=== PATIENT | female | born 1940 | race Hispanic/Latino ===

== ENCOUNTER 2021-01-02 09:58 | Emergency (ER) | payer MEDICARE ==
[~2021-01-02] VITALS: Ht 160 cm; Wt 65.0 kg
[2021-01-02] MEDS ORDERED: TORADOL PO (11:54)
[2021-01-02 12:09] VITALS: BP 107/61
== END 2021-01-02 12:09 | disposition home or self-care (01) ==
LOC: EDBD 09:58 → ED 09:58
DX: S49.91XA Unspecified injury of right shoulder and upper arm, initial encounter (principal); M19.011 Primary osteoarthritis, right shoulder; J44.9 Chronic obstructive pulmonary disease, unspecified; X50.0XXA Overexertion from strenuous movement or load, initial encounter; Z95.0 Presence of cardiac pacemaker

== ENCOUNTER 2022-07-24 21:12 | Observation (INO) | payer MEDICARE ==
[~2022-07-24] VITALS: Ht 160 cm; Wt 65.9 kg
[~2022-07-24 21:12] MED LIST: TORADOL PO
--- NOTE | 2022-07-24 21:12 | NUR ---
PATIENT TO ROOM VIA STRETCHER ACCOMPANIED BY FLIGHT CREW.
[2022-07-24 22:04] LABS: URINE BILIRUBIN - DIPSTICK NEGATIVE (NEGATIVE); URINE BLOOD DIPSTICK NEGATIVE (NEGATIVE); URINE COLOR YELLOW; URINE GLUCOSE - DIPSTICK NEGATIVE (NEGATIVE); URINE KETONE NEGATIVE (NEGATIVE); URINE PH 8.5 (4.5-8.0); URINE PROTEIN - DIPSTICK NEGATIVE (NEG-TRACE)
[2022-07-24 22:04] LABS: HEMATOCRIT 39.6 % (37.0-47.0); HEMOGLOBIN 12.6 g/dl (12.0-16.0); IMMATURE GRANULOCYTES 0.2 % (0.0-5.0); MEAN CELL VOLUME 99.5 fL CALC (80.0-100.0); MEAN CORPUSCULAR HGB 31.7 pG CALC (26.0-32.0); MEAN CORPUSCULAR HGB CONC 31.8 g/dL CAL (32.0-36.0); NEUT# 2.83 thou/uL (2.00-7.15); RED BLOOD COUNT 3.98 mill/uL (4.20-5.60); RED CELL DISTRI WIDTH 14.7 % (11.5-15.5)
[2022-07-24] MEDS ORDERED: CITALOPRAM20 M1 (22:04)
[2022-07-24] MEDS ORDERED: SPIRIVA IN (22:04)
[2022-07-24] MEDS ORDERED: COREG3.125 MG PO (22:05)
[2022-07-24 22:06] LABS: URINE LEUK ESTERASE SMALL (NEGATIVE); URINE NITRITE - DIPSTICK POSITIVE (Negative)
[2022-07-24] MEDS ORDERED: POTASSIUM99 MG PO (22:06)
[2022-07-24] MEDS ORDERED: ELIQUIS5 MG PO (22:06)
[2022-07-24] MEDS ORDERED: ASPIRIN325 MG PO (22:07)
[2022-07-24] MEDS ORDERED: LEVOTHYROXIN50 MCG PO (22:07)
[2022-07-24] MEDS ORDERED: LIPITOR20 MG PO (22:07)
--- NOTE | 2022-07-24 22:08 | NUR ---
DAUGHTER CALLED [place] TO GIVE LIST OF HOME MEDS. [phone]
--- NOTE | 2022-07-24 22:14 | NUR ---
NO COUGH NO WHEEZE NO SOB.W/P/D SKIN PINK MOIST ORAL MUCOSA
[2022-07-24 22:29] LABS: ALBUMIN 3.5 g/dL (3.2-5.0); ALKALINE PHOSPHATASE 141 u/l (38-126); BILIRUBIN, TOTAL 0.8 mg/dL (0.0-1.4); BUN 15 mg/dL (8-23); BUN/CREATININE RATIO 17 (12-20 (CALC)); CHLORIDE 93 mmol/l (95-108); CREATININE 0.9 mg/dL (0.5-1.0); GFR FOR AFR.AMER. > 60 ML/MIN (>=60 (CALC)); GFR OTHER RACES 60 ML/MIN (>=60 (CALC)); POTASSIUM 4.3 mmol/l (3.5-5.1); SGOT/AST 72 u/l (9-36); SODIUM 136 mmol/l (137-146); TOTAL PROTEIN 7.5 g/dL (6.3-8.2)
[2022-07-24 22:29] LABS: URINE BACTERIA MANY hpf; URINE SQUAMOUS EPITHELIAL CELL MANY EPI/hpf (0-FEW)
[2022-07-24 22:30] LABS: URINE TRIP PHOS CRYSTALS FEW lpf
[2022-07-24 22:35] LABS: ANION GAP 6 (6-22 (CALC))
[2022-07-24 22:42] LABS: CARBON DIOXIDE 41 mmol/l (22-30)
[2022-07-25] VITALS (7 sets, daily range): BP systolic 91–129; BP diastolic 45–70
--- NOTE | 2022-07-25 00:35 | NUR ---
FOUND IV LAC DISPLACED RESTARTED SLINE LOCK RAC 20 GAUGE
--- NOTE | 2022-07-25 01:19 | NUR ---
PT REPORT TO NURSE NURSE DAVID ON MS
--- NOTE | 2022-07-25 01:24 | NUR ---
PT TRANSPORTED TO CT VIA STRETCHER ON O2 AND TELE IN STABLE CONDITION
--- NOTE | 2022-07-25 02:35 | NUR ---
PATIENT ARRIVED TO THE FLOOR VIA ED. PATIENT IS ALERT AND ORIENTED. PATIIENT C/O BEING COLD. PATIENT HAS HX OF COPD IV ABX GIVEN IN ED
--- NOTE | 2022-07-25 07:38 | NUR ---
PT RESTING IN LOW FOWLERS POSITION. ASSESSMENT ANS VS COMPLETE. HEART RHYTHM ON TELE .RESPIRAITONSUNLABORED ON 2L NC BOWEL SOUNDS ACTIVE. IV SITE TO RAC S.L NOTED. ALL SAFETY PRECAUTIONS IN PLACE WITH CALL LIGHT INREACH.
--- NOTE | 2022-07-25 11:58 | NUR ---
PT COVID SWAB COLLECTED.
--- NOTE | 2022-07-25 15:57 | NUR ---
PT RESTING IN HIGH FOWLERS POSITIION DENIES ADDITIONAL NEEDS AT THE TIME.
[2022-07-25] MEDS ORDERED: DOXEPIN HCL10 MG PO (18:37)
[2022-07-25] MEDS ORDERED: PROAIR HFA IN (18:42)
--- NOTE | 2022-07-25 21:56 | NUR ---
NILTON RN DID NOT IMMEDIATELY HAVE [employer] ACCESS. SLOT FLOOR PERSON APPROVED MEDICATION ADMINISTRATION AND SIGNED OFF ON ADMINISTRATION.
[2022-07-26 00:21] VITALS: BP 95/54
[2022-07-26 04:12] VITALS: BP 103/54
[2022-07-26 05:04] LABS: ANION GAP 10 (6-22 (CALC)); BUN 17 mg/dL (8-23); BUN/CREATININE RATIO 20 (12-20 (CALC)); CARBON DIOXIDE 36 mmol/l (22-30); CHLORIDE 93 mmol/l (95-108); CREATININE 0.8 mg/dL (0.5-1.0); GFR FOR AFR.AMER. > 60 ML/MIN (>=60 (CALC)); GFR OTHER RACES > 60 ML/MIN (>=60 (CALC)); MAGNESIUM 1.9 mg/dL (1.6-2.3); POTASSIUM 4.4 mmol/l (3.5-5.1); SODIUM 135 mmol/l (137-146)
[2022-07-26 06:18] VITALS: BP 106/50
[2022-07-26 10:34] VITALS: BP 103/59
--- NOTE | 2022-07-26 10:52 | NUR ---
PRELIMINARY BLOOD CULTURE RESULTS CALLED TO DR MURPHY. NO NEW ORDERS AT THIS TIME.
[2022-07-26 15:40] VITALS: BP 98/55
[2022-07-26 19:12] VITALS: BP 109/60
[2022-07-27 00:09] VITALS: BP 96/51
[2022-07-27 03:57] VITALS: BP 104/54
[2022-07-27 06:38] VITALS: BP 96/51
[2022-07-27 11:42] VITALS: BP 109/65
[2022-07-27] MEDS ORDERED: KEFLEX500 MG PO (13:30)
[2022-07-27] MEDS ORDERED: MEDDOSEPAK PO (13:30)
== END 2022-07-27 17:56 | disposition home health service (06) ==
LOC: ED 21:12 → ED-I 23:00 → ED 23:51 → MS2 23:51
PROVIDERS: Internal Medicine; Nurse Practitioner; ADMIT Internal Medicine; ATTEND Internal Medicine
DX: J44.1 Chronic obstructive pulmonary disease with (acute) exacerbation (principal); N39.0 Urinary tract infection, site not specified; J96.21 Acute and chronic respiratory failure with hypoxia; R53.1 Weakness; I48.91 Unspecified atrial fibrillation; E03.9 Hypothyroidism, unspecified; F32.A Depression, unspecified; Z95.0 Presence of cardiac pacemaker; B96.4 Proteus (mirabilis) (morganii) as the cause of diseases classified elsewhere; Z99.81 Dependence on supplemental oxygen; Z79.01 Long term (current) use of anticoagulants; Z59.1 Inadequate housing; Z20.822 Contact with and (suspected) exposure to COVID-19

== ENCOUNTER 2022-10-09 17:59 | Emergency (ER) | payer MEDICARE ==
[2022-10-09] VITALS (12 sets, daily range): BP systolic 120–157; BP diastolic 69–90
[~2022-10-09] VITALS: Ht 160 cm; Wt 58.9 kg
[~2022-10-09 17:59] MED LIST changes: +ASPIRIN325 MG PO; +CITALOPRAM20 M1; +COREG3.125 MG PO; +DOXEPIN HCL10 MG PO; +ELIQUIS5 MG PO; +KEFLEX500 MG PO; +LEVOTHYROXIN50 MCG PO; +LIPITOR20 MG PO; +MEDDOSEPAK PO; +POTASSIUM99 MG PO; +PROAIR HFA IN; +SPIRIVA IN
[2022-10-09 19:41] LABS: HEMATOCRIT 35.6 % (37.0-47.0); HEMOGLOBIN 11.5 g/dl (12.0-16.0); MEAN CELL VOLUME 102.9 fL CALC (80.0-100.0); MEAN CORPUSCULAR HGB 33.2 pG CALC (26.0-32.0); MEAN CORPUSCULAR HGB CONC 32.3 g/dL CAL (32.0-36.0); NEUT# 1.8 thou/uL (2.00-7.15); RED BLOOD COUNT 3.46 mill/uL (4.20-5.60); RED CELL DISTRI WIDTH 14.5 % (11.5-15.5)
[2022-10-09 20:05] LABS: ALBUMIN 3.6 g/dL (3.2-5.0); ALKALINE PHOSPHATASE 195 u/l (38-126); BILIRUBIN, TOTAL 0.6 mg/dL (0.0-1.4); BUN 15 mg/dL (8-23); BUN/CREATININE RATIO 17 (12-20 (CALC)); CHLORIDE 95 mmol/l (95-108); CREATININE 0.9 mg/dL (0.5-1.0); GFR FOR AFR.AMER. > 60 ML/MIN (>=60 (CALC)); GFR OTHER RACES 60 ML/MIN (>=60 (CALC)); POTASSIUM 4.3 mmol/l (3.5-5.1); SGOT/AST 107 u/l (9-36); SODIUM 140 mmol/l (137-146); TOTAL PROTEIN 7.1 g/dL (6.3-8.2)
[2022-10-09 20:11] LABS: ANION GAP 7 (6-22 (CALC))
[2022-10-09 20:13] LABS: CARBON DIOXIDE 42 mmol/l (22-30)
[2022-10-09 20:17] LABS: URINE BILIRUBIN - DIPSTICK NEGATIVE (NEGATIVE); URINE BLOOD DIPSTICK NEGATIVE (NEGATIVE); URINE COLOR YELLOW; URINE GLUCOSE - DIPSTICK NEGATIVE (NEGATIVE); URINE KETONE NEGATIVE (NEGATIVE); URINE PH 7.5 (4.5-8.0); URINE PROTEIN - DIPSTICK NEGATIVE (NEG-TRACE)
[2022-10-09 20:19] LABS: URINE LEUK ESTERASE SMALL (NEGATIVE); URINE NITRITE - DIPSTICK NEGATIVE (Negative)
[2022-10-09 20:23] LABS: URINE SQUAMOUS EPITHELIAL CELL FEW EPI/hpf (0-FEW); URINE TRANSITIONAL EPI. CELLS RARE hpf
[2022-10-09] MEDS ORDERED: VIBRAMYCIN100 M2 PO (20:41)
[2022-10-09] MEDS ORDERED: ALBUTEROL SUL0.083 % IN (20:41)
[2022-10-09] MEDS ORDERED: PREDNISONE50 MG PO (20:41)
[2022-10-09] MEDS ORDERED: NEBULIZER KIT/TUBING IN (20:41)
== END 2022-10-09 21:40 | disposition home or self-care (01) ==
LOC: ED 17:59
PROVIDERS: Family Medicine
DX: J44.1 Chronic obstructive pulmonary disease with (acute) exacerbation (principal); Z95.0 Presence of cardiac pacemaker

== ENCOUNTER 2022-11-12 19:37 | Observation (INO) | payer MEDICARE ==
[2022-11-12] VITALS (13 sets, daily range): BP systolic 108–145; BP diastolic 53–76
[~2022-11-12] VITALS: Ht 160 cm; Wt 67.2 kg
[~2022-11-12 19:37] MED LIST changes: +ALBUTEROL SUL0.083 % IN; +NEBULIZER KIT/TUBING IN; +PREDNISONE50 MG PO; +VIBRAMYCIN100 M2 PO
[2022-11-12 20:33] LABS: BASO% 0.8 % (0-3); EOS% 3.8 % (0-8); HEMATOCRIT 34.6 % (37.0-47.0); HEMOGLOBIN 11.2 g/dl (12.0-16.0); IMMATURE GRANULOCYTES 0.3 % (0.0-5.0); LYMPH% 31.5 % (15-41); MEAN CELL VOLUME 100.9 fL CALC (80.0-100.0); MEAN CORPUSCULAR HGB 32.7 pG CALC (26.0-32.0); MEAN CORPUSCULAR HGB CONC 32.4 g/dL CAL (32.0-36.0); MONO% 6.2 % (2-13); NEUT# 2.13 thou/uL (2.00-7.15); NEUT% 57.4 % (42-76); RED BLOOD COUNT 3.43 mill/uL (4.20-5.60); RED CELL DISTRI WIDTH 14.2 % (11.5-15.5)
[2022-11-12 20:46] LABS: ALKALINE PHOSPHATASE 138 u/l (38-126); AMYLASE 184 u/l (30-110); BUN 19 mg/dL (8-23); BUN/CREATININE RATIO 19 (12-20 (CALC)); CHLORIDE 94 mmol/l (95-108); GFR FOR AFR.AMER. > 60 ML/MIN (>=60 (CALC)); GFR OTHER RACES 53 ML/MIN (>=60 (CALC)); LIPASE 308 u/l (23-300); POTASSIUM 4.6 mmol/l (3.5-5.1); SGOT/AST 134 u/l (9-36); SODIUM 138 mmol/l (137-146); TOTAL PROTEIN 7.4 g/dL (6.3-8.2)
[2022-11-12 20:56] LABS: ANION GAP 2 (6-22 (CALC)); BILIRUBIN, TOTAL 1.4 mg/dL (0.0-1.4); CARBON DIOXIDE 47 mmol/l (22-30)
[2022-11-12 22:45] LABS: URINE BILIRUBIN - DIPSTICK NEGATIVE (NEGATIVE); URINE BLOOD DIPSTICK NEGATIVE (NEGATIVE); URINE COLOR YELLOW; URINE GLUCOSE - DIPSTICK NEGATIVE (NEGATIVE); URINE KETONE NEGATIVE (NEGATIVE); URINE PH 7.5 (4.5-8.0); URINE PROTEIN - DIPSTICK NEGATIVE (NEG-TRACE)
[2022-11-12 22:47] LABS: URINE LEUK ESTERASE SMALL (NEGATIVE); URINE NITRITE - DIPSTICK NEGATIVE (Negative)
[2022-11-12 22:58] LABS: URINE RBC 0-2 RBC/hpf (0-5); URINE SQUAMOUS EPITHELIAL CELL FEW EPI/hpf (0-FEW)
[2022-11-13] VITALS (14 sets, daily range): BP systolic 98–131; BP diastolic 42–90
[2022-11-13 04:47] LABS: BASO% 0.7 % (0-3); EOS% 3.3 % (0-8); HEMATOCRIT 32.5 % (37.0-47.0); HEMOGLOBIN 10.4 g/dl (12.0-16.0); LYMPH% 35.3 % (15-41); MEAN CELL VOLUME 101.6 fL CALC (80.0-100.0); MEAN CORPUSCULAR HGB 32.5 pG CALC (26.0-32.0); MONO% 7.5 % (2-13); NEUT# 1.63 thou/uL (2.00-7.15); NEUT% 53.2 % (42-76); RED BLOOD COUNT 3.2 mill/uL (4.20-5.60); RED CELL DISTRI WIDTH 14.2 % (11.5-15.5)
[2022-11-13 05:01] LABS: ALKALINE PHOSPHATASE 118 u/l (38-126); BUN 16 mg/dL (8-23); BUN/CREATININE RATIO 17 (12-20 (CALC)); CHLORIDE 96 mmol/l (95-108); GFR FOR AFR.AMER. > 60 ML/MIN (>=60 (CALC)); GFR OTHER RACES 53 ML/MIN (>=60 (CALC)); SGOT/AST 99 u/l (9-36); SODIUM 138 mmol/l (137-146); TOTAL PROTEIN 6.1 g/dL (6.3-8.2)
[2022-11-13 05:11] LABS: POTASSIUM 3.6 mmol/l (3.5-5.1)
[2022-11-13 05:12] LABS: ALBUMIN 3.1 g/dL (3.2-5.0); ANION GAP 3 (6-22 (CALC)); BILIRUBIN, TOTAL 0.8 mg/dL (0.0-1.4)
[2022-11-13 05:13] LABS: CARBON DIOXIDE 43 mmol/l (22-30)
[2022-11-14] VITALS (37 sets, daily range): BP systolic 87–131; BP diastolic 38–84
[2022-11-14 06:02] LABS: BASO% 0.6 % (0-3); EOS% 4.2 % (0-8); HEMATOCRIT 30.6 % (37.0-47.0); HEMOGLOBIN 9.8 g/dl (12.0-16.0); LYMPH% 29.7 % (15-41); MEAN CELL VOLUME 102.7 fL CALC (80.0-100.0); MEAN CORPUSCULAR HGB 32.9 pG CALC (26.0-32.0); MONO% 6.8 % (2-13); NEUT# 1.82 thou/uL (2.00-7.15); NEUT% 58.7 % (42-76); RED BLOOD COUNT 2.98 mill/uL (4.20-5.60); RED CELL DISTRI WIDTH 14.1 % (11.5-15.5)
[2022-11-14 06:14] LABS: ALBUMIN 2.9 g/dL (3.2-5.0); ALKALINE PHOSPHATASE 107 u/l (38-126); BILIRUBIN, TOTAL 0.5 mg/dL (0.0-1.4); CHLORIDE 98 mmol/l (95-108); POTASSIUM 3.9 mmol/l (3.5-5.1); SGOT/AST 98 u/l (9-36); SODIUM 138 mmol/l (137-146); TOTAL PROTEIN 5.7 g/dL (6.3-8.2)
[2022-11-14 06:19] LABS: BUN 14 mg/dL (8-23); BUN/CREATININE RATIO 14 (12-20 (CALC)); GFR FOR AFR.AMER. > 60 ML/MIN (>=60 (CALC)); GFR OTHER RACES 53 ML/MIN (>=60 (CALC))
[2022-11-14 06:21] LABS: ANION GAP 0 (6-22 (CALC))
[2022-11-14 06:32] LABS: CARBON DIOXIDE 44 mmol/l (22-30)
[2022-11-15] VITALS (89 sets, daily range): BP systolic 77–150; BP diastolic 35–105
[2022-11-15 05:58] LABS: BASO% 0.4 % (0-3); EOS% 2.7 % (0-8); HEMATOCRIT 31.6 % (37.0-47.0); HEMOGLOBIN 10.3 g/dl (12.0-16.0); IMMATURE GRANULOCYTES 0.2 % (0.0-5.0); MEAN CORPUSCULAR HGB 32.9 pG CALC (26.0-32.0); MEAN CORPUSCULAR HGB CONC 32.6 g/dL CAL (32.0-36.0); MONO% 7.8 % (2-13); NEUT# 3.81 thou/uL (2.00-7.15); NEUT% 67.9 % (42-76); RED BLOOD COUNT 3.13 mill/uL (4.20-5.60); RED CELL DISTRI WIDTH 14.2 % (11.5-15.5)
[2022-11-15 06:29] LABS: ALBUMIN 2.9 g/dL (3.2-5.0); ALKALINE PHOSPHATASE 123 u/l (38-126); BUN 13 mg/dL (8-23); BUN/CREATININE RATIO 15 (12-20 (CALC)); CHLORIDE 99 mmol/l (95-108); CREATININE 0.9 mg/dL (0.5-1.0); GFR FOR AFR.AMER. > 60 ML/MIN (>=60 (CALC)); GFR OTHER RACES 60 ML/MIN (>=60 (CALC)); POTASSIUM 3.9 mmol/l (3.5-5.1); SGOT/AST 99 u/l (9-36); SODIUM 139 mmol/l (137-146); TOTAL PROTEIN 5.6 g/dL (6.3-8.2)
[2022-11-15 06:42] LABS: ANION GAP 0 (6-22 (CALC)); CARBON DIOXIDE 44 mmol/l (22-30)
[2022-11-16] VITALS (9 sets, daily range): BP systolic 104–130; BP diastolic 53–65
[2022-11-16 05:43] LABS: HEMATOCRIT 31.3 % (37.0-47.0); HEMOGLOBIN 10.5 g/dl (12.0-16.0); MEAN CORPUSCULAR HGB 33.9 pG CALC (26.0-32.0); MEAN CORPUSCULAR HGB CONC 33.5 g/dL CAL (32.0-36.0); RED BLOOD COUNT 3.1 mill/uL (4.20-5.60)
[2022-11-16 05:51] LABS: ALBUMIN 2.8 g/dL (3.2-5.0); ALKALINE PHOSPHATASE 112 u/l (38-126); BUN 13 mg/dL (8-23); BUN/CREATININE RATIO 15 (12-20 (CALC)); CHLORIDE 97 mmol/l (95-108); CREATININE 0.9 mg/dL (0.5-1.0); GFR FOR AFR.AMER. > 60 ML/MIN (>=60 (CALC)); GFR OTHER RACES 60 ML/MIN (>=60 (CALC)); MAGNESIUM 1.9 mg/dL (1.6-2.3); POTASSIUM 3.9 mmol/l (3.5-5.1); SGOT/AST 106 u/l (9-36); SODIUM 137 mmol/l (137-146); TOTAL PROTEIN 5.7 g/dL (6.3-8.2)
[2022-11-16 05:59] LABS: ANION GAP 0 (6-22 (CALC))
[2022-11-16 06:13] LABS: CARBON DIOXIDE 44 mmol/l (22-30)
[2022-11-17 00:38] VITALS: BP 103/58
[2022-11-17 04:14] VITALS: BP 126/57
[2022-11-17 06:25] LABS: BASO% 0.4 % (0-3); EOS% 2.4 % (0-8); HEMATOCRIT 33.7 % (37.0-47.0); LYMPH% 25.5 % (15-41); MEAN CELL VOLUME 100.9 fL CALC (80.0-100.0); MEAN CORPUSCULAR HGB 32.9 pG CALC (26.0-32.0); MEAN CORPUSCULAR HGB CONC 32.6 g/dL CAL (32.0-36.0); MONO% 7.6 % (2-13); NEUT# 3.54 thou/uL (2.00-7.15); NEUT% 64.1 % (42-76); RED BLOOD COUNT 3.34 mill/uL (4.20-5.60); RED CELL DISTRI WIDTH 14.1 % (11.5-15.5)
[2022-11-17 06:32] LABS: ALKALINE PHOSPHATASE 164 u/l (38-126); BILIRUBIN, TOTAL 0.8 mg/dL (0.0-1.4); BUN 13 mg/dL (8-23); BUN/CREATININE RATIO 15 (12-20 (CALC)); CHLORIDE 96 mmol/l (95-108); CREATININE 0.9 mg/dL (0.5-1.0); GFR FOR AFR.AMER. > 60 ML/MIN (>=60 (CALC)); GFR OTHER RACES 60 ML/MIN (>=60 (CALC)); MAGNESIUM 1.8 mg/dL (1.6-2.3); POTASSIUM 3.8 mmol/l (3.5-5.1); SGOT/AST 118 u/l (9-36); SODIUM 139 mmol/l (137-146); TOTAL PROTEIN 5.9 g/dL (6.3-8.2)
[2022-11-17 06:39] LABS: ANION GAP 0 (6-22 (CALC))
[2022-11-17 06:45] LABS: CARBON DIOXIDE 47 mmol/l (22-30)
[2022-11-17 08:59] VITALS: BP 123/62
[2022-11-17 19:37] VITALS: BP 124/64
[2022-11-17 23:36] VITALS: BP 112/58
[2022-11-18 04:19] VITALS: BP 111/61
[2022-11-18 05:48] LABS: BASO% 0.7 % (0-3); EOS% 3.9 % (0-8); HEMATOCRIT 33.2 % (37.0-47.0); HEMOGLOBIN 10.7 g/dl (12.0-16.0); LYMPH% 30.9 % (15-41); MEAN CELL VOLUME 103.8 fL CALC (80.0-100.0); MEAN CORPUSCULAR HGB 33.4 pG CALC (26.0-32.0); MEAN CORPUSCULAR HGB CONC 32.2 g/dL CAL (32.0-36.0); MONO% 7.7 % (2-13); NEUT# 2.45 thou/uL (2.00-7.15); NEUT% 56.8 % (42-76); RED BLOOD COUNT 3.2 mill/uL (4.20-5.60); RED CELL DISTRI WIDTH 14.3 % (11.5-15.5)
[2022-11-18 05:49] LABS: ALBUMIN 3.2 g/dL (3.2-5.0); ALKALINE PHOSPHATASE 140 u/l (38-126); BILIRUBIN, TOTAL 0.9 mg/dL (0.0-1.4); BUN 11 mg/dL (8-23); BUN/CREATININE RATIO 12 (12-20 (CALC)); CHLORIDE 95 mmol/l (95-108); CREATININE 0.9 mg/dL (0.5-1.0); GFR FOR AFR.AMER. > 60 ML/MIN (>=60 (CALC)); GFR OTHER RACES 60 ML/MIN (>=60 (CALC)); MAGNESIUM 1.9 mg/dL (1.6-2.3); POTASSIUM 3.7 mmol/l (3.5-5.1); SGOT/AST 121 u/l (9-36); SODIUM 139 mmol/l (137-146); TOTAL PROTEIN 6.2 g/dL (6.3-8.2)
[2022-11-18 05:56] LABS: ANION GAP 1 (6-22 (CALC))
[2022-11-18 06:02] LABS: CARBON DIOXIDE 47 mmol/l (22-30)
[2022-11-18 06:39] VITALS: BP 111/61
[2022-11-18] MEDS ORDERED: CEPHALEXIN500 MG PO (12:46)
== END 2022-11-18 17:10 ==
LOC: ED 19:37 → ED-I 23:47 → ED 23:56 → MS2 23:57 → ICU 11-14 16:17 → MS2 11-15 22:35
PROVIDERS: Emergency Medicine; Internal Medicine; Nurse Practitioner Family; ADMIT Internal Medicine; ATTEND Internal Medicine
DX: R07.9 Chest pain, unspecified (principal); J44.1 Chronic obstructive pulmonary disease with (acute) exacerbation; S00.03XA Contusion of scalp, initial encounter; S02.612A Fracture of condylar process of left mandible, initial encounter for closed fracture; J96.21 Acute and chronic respiratory failure with hypoxia; I48.91 Unspecified atrial fibrillation; E03.9 Hypothyroidism, unspecified; F32.A Depression, unspecified; K74.60 Unspecified cirrhosis of liver; K76.6 Portal hypertension; W18.30XA Fall on same level, unspecified, initial encounter; Y92.230 Patient room in hospital as the place of occurrence of the external cause; Z86.73 Personal history of transient ischemic attack (TIA), and cerebral infarction without residual deficits; Z79.01 Long term (current) use of anticoagulants; Z95.0 Presence of cardiac pacemaker; Z99.81 Dependence on supplemental oxygen; Z20.822 Contact with and (suspected) exposure to COVID-19
CPT/HCPCS: Q9967

== ENCOUNTER 2022-11-24 10:48 | Emergency (ER) | payer MEDICARE ==
[~2022-11-24] VITALS: Ht 160 cm; Wt 69.4 kg
[2022-11-24] VITALS (18 sets, daily range): BP systolic 115–152; BP diastolic 60–80
[~2022-11-24 10:48] MED LIST changes: +CEPHALEXIN500 MG PO
[2022-11-24 11:35] LABS: BASO% 0.5 % (0-3); HEMATOCRIT 33.3 % (37.0-47.0); HEMOGLOBIN 10.5 g/dl (12.0-16.0); IMMATURE GRANULOCYTES 0.3 % (0.0-5.0); LYMPH% 30.9 % (15-41); MEAN CELL VOLUME 104.4 fL CALC (80.0-100.0); MEAN CORPUSCULAR HGB 32.9 pG CALC (26.0-32.0); MEAN CORPUSCULAR HGB CONC 31.5 g/dL CAL (32.0-36.0); NEUT# 1.96 thou/uL (2.00-7.15); NEUT% 51.3 % (42-76); RED BLOOD COUNT 3.19 mill/uL (4.20-5.60); RED CELL DISTRI WIDTH 14.5 % (11.5-15.5)
[2022-11-24 11:49] LABS: ALBUMIN 3.5 g/dL (3.2-5.0); ALKALINE PHOSPHATASE 154 u/l (38-126); BILIRUBIN, TOTAL 0.9 mg/dL (0.02-1.3); BUN 10 mg/dL (8-23); BUN/CREATININE RATIO 12 (12-20 (CALC)); CHLORIDE 93 mmol/l (95-108); CREATININE 0.8 mg/dL (0.5-1.0); GFR FOR AFR.AMER. > 60 ML/MIN (>=60 (CALC)); GFR OTHER RACES > 60 ML/MIN (>=60 (CALC)); POTASSIUM 3.4 mmol/l (3.5-5.1); SGOT/AST 100 u/l (9-36); SODIUM 138 mmol/l (137-146); TOTAL PROTEIN 6.7 g/dL (6.3-8.2)
[2022-11-24 11:58] LABS: CARBON DIOXIDE 49 mmol/l (22-30)
[2022-11-24] MEDS ORDERED: PREDNISONE50 MG PO (14:40)
[2022-11-24] MEDS ORDERED: ALBUTEROL SUL0.083 % IN (14:40)
== END 2022-11-24 15:25 | disposition home or self-care (01) ==
LOC: ED 10:48
PROVIDERS: Emergency Medicine
DX: J44.1 Chronic obstructive pulmonary disease with (acute) exacerbation (principal); S00.83XA Contusion of other part of head, initial encounter; I48.91 Unspecified atrial fibrillation; E78.00 Pure hypercholesterolemia, unspecified; W19.XXXA Unspecified fall, initial encounter; Y92.239 Unspecified place in hospital as the place of occurrence of the external cause; Z99.81 Dependence on supplemental oxygen; Z95.0 Presence of cardiac pacemaker

== ENCOUNTER 2023-01-25 19:29 | Emergency (ER) | payer MEDICARE ==
[2023-01-25] VITALS (7 sets, daily range): BP systolic 120–128; BP diastolic 58–72
[~2023-01-25] VITALS: Ht 160 cm; Wt 63.0 kg
[2023-01-25 19:59] LABS: BASO% 0.8 % (0-3); EOS% 2.9 % (0-8); HEMATOCRIT 31.9 % (37.0-47.0); HEMOGLOBIN 10.1 g/dl (12.0-16.0); LYMPH% 32.7 % (15-41); MEAN CELL VOLUME 101.9 fL CALC (80.0-100.0); MEAN CORPUSCULAR HGB 32.3 pG CALC (26.0-32.0); MEAN CORPUSCULAR HGB CONC 31.7 g/dL CAL (32.0-36.0); MONO% 8.1 % (2-13); NEUT# 2.12 thou/uL (2.00-7.15); NEUT% 55.5 % (42-76); RED BLOOD COUNT 3.13 mill/uL (4.20-5.60); RED CELL DISTRI WIDTH 13.3 % (11.5-15.5)
[2023-01-25 20:14] LABS: ALBUMIN 3.2 g/dL (3.2-5.0); ALKALINE PHOSPHATASE 135 u/l (38-126); BILIRUBIN, TOTAL 0.7 mg/dL (0.02-1.3); BUN 14 mg/dL (8-23); BUN/CREATININE RATIO 13 (12-20 (CALC)); CHLORIDE 97 mmol/l (95-108); CREATININE 1.1 mg/dL (0.5-1.0); GFR FOR AFR.AMER. 58 ML/MIN (>=60 (CALC)); GFR OTHER RACES 48 ML/MIN (>=60 (CALC)); POTASSIUM 3.7 mmol/l (3.5-5.1); SGOT/AST 69 u/l (9-36); SODIUM 136 mmol/l (137-146); TOTAL PROTEIN 6.1 g/dL (6.3-8.2)
[2023-01-25 20:16] LABS: ANION GAP 5 (6-22 (CALC)); CARBON DIOXIDE 38 mmol/l (22-30)
[2023-01-25] MEDS ORDERED: PREDNISONE50 MG PO (20:38)
== END 2023-01-25 21:09 | disposition home or self-care (01) ==
LOC: ED 19:29
PROVIDERS: Family Medicine
DX: J44.1 Chronic obstructive pulmonary disease with (acute) exacerbation (principal); I48.91 Unspecified atrial fibrillation; E78.00 Pure hypercholesterolemia, unspecified; Z79.01 Long term (current) use of anticoagulants; Z99.81 Dependence on supplemental oxygen; Z20.822 Contact with and (suspected) exposure to COVID-19